=== PATIENT | male | born 1985 | race African-American/Black ===

== ENCOUNTER 2018-09-20 12:58 | Inpatient (IN) | payer OTHER | END 2018-09-24 14:48 | disposition home or self-care (01) | LOC: YASAS 12:58 → Y3N 19:32 ==

== ENCOUNTER 2020-08-05 21:38 | Emergency (ER) | payer OTHER ==
[2020-08-05 21:46] VITALS: BP 136/87; PULSE 63; TEMP 98.9; BMI 25.7
[2020-08-06] MEDS ORDERED: cloNIDine HCL 0.1 MG TABLET PO ONE (00:16)
[2020-08-06] MEDS ORDERED: chlordiazePOXIDE HCL 25 MG CAPSULE PO ONE (02:10)
[2020-08-06] MEDS ORDERED: cloNIDine HCL 0.1 MG TABLET ONE (02:33)
[2020-08-06] MEDS ORDERED: chlordiazePOXIDE HCL 25 MG CAPSULE ONE (02:33)
== END 2020-08-06 06:03 | disposition home or self-care (01) ==
LOC: EDSEX → JER 21:38 → MERGE 21:38 → JER 08-06 06:03
DX: S81.801A Unspecified open wound, right lower leg, initial encounter (principal); F10.230 Alcohol dependence with withdrawal, uncomplicated; F19.10 Other psychoactive substance abuse, uncomplicated
CPT/HCPCS: 99283-25; J0735

== ENCOUNTER 2020-08-06 08:10 | Inpatient (IN) | payer OTHER ==
[2020-08-06 09:05] VITALS: BMI 25.7
[2020-08-06] MEDS ORDERED: MAGNESIUM HYDROX 2400MG/30ML ORAL SUSPENSION 30 ML CUP PO PRN (11:03)
[2020-08-06] MEDS ORDERED: LOPERAMIDE HCL 2 MG CAPSULE PO PRN (11:03)
[2020-08-06] MEDS ORDERED: guaiFENesin 200 MG/10 ML 10 ML UNIT-DOSE CUPS PO PRN (11:03)
[2020-08-06] MEDS ORDERED: ACETAMINOPHEN 325 MG TABLET (FP) PO PRN (11:03)
[2020-08-06] MEDS ORDERED: MAG HYDROX/AL HYDROX/SIMETH 30 ML UNIT-DOSE CUP PO PRN (11:03)
[2020-08-06] MEDS ORDERED: P-EPHED 60MG/TRIPROLIDI 2.5MG TABLET PO PRN (11:03)
[2020-08-06] MEDS ORDERED: IBUPROFEN 400 MG TABLET (FP) PO PRN (11:03)
[2020-08-06] MEDS ORDERED: MAGNESIUM CITRATE 300 ML BOTTLE PO PRN (11:03)
[2020-08-06] MEDS ORDERED: NICOTINE 7 MG/24 HOURS TOPICAL PATCH TD SCH (11:15)
[2020-08-06 13:28] LABS: HEMATOCRIT 25.8 % (35.4-49); HEMOGLOBIN 8.1 GM/dL (11.7-16.9); MCH 21.3 pg (25.7-33.7); MCHC 31.6 g/dl (32.0-35.9); MEAN CELL VOLUME 67.5 fl (80-96); MEAN PLT VOLUME 8.7 fl (7.5-11.1); PLATELET COUNT 128 10^3/uL (134-434); RBC 3.82 M/mm3 (4.00-5.60); RDW 22.8 % (11.9-15.9); WHITE BLOOD COUNT 4.2 K/mm3 (4.0-10.0)
[2020-08-06 13:29] LABS: ALBUMIN 2.7 g/dl (3.4-5.0); CALCIUM 8.2 mg/dL (8.5-10.1)
[2020-08-06 13:30] LABS: BLOOD UREA NITROGEN 14.8 mg/dL (7-18)
[2020-08-06 13:33] LABS: CREATININE 1.1 mg/dL (0.55-1.3)
[2020-08-06 13:34] LABS: BILIRUBIN,TOTAL 0.2 mg/dL (0.2-1); TOT PROT 8.8 g/dl (6.4-8.2)
[2020-08-06] MEDS ORDERED: hydrOXYzine PAMOATE 25 MG CAPSULE (FP) PO SCH (14:00)
[2020-08-06] MEDS: ACETAMINOPHEN 325 MG TABLET (FP) PO PRN (18:48)
[2020-08-06] MEDS: hydrOXYzine PAMOATE 25 MG CAPSULE (FP) PO PRN (20:38)
[2020-08-06] MEDS: MELATONIN 5 MG TABLETS PO SCH (21:28)
[2020-08-06] MEDS: APIXABAN 5 MG TABLET PO SCH (21:28)
[2020-08-06] MEDS: THIAMINE HCL 100 MG TABLET (FP) PO SCH (21:28)
[2020-08-06] MEDS: GABAPENTIN 300 MG CAPSULE PO SCH (21:28)
[2020-08-07] MEDS: ACETAMINOPHEN 325 MG TABLET (FP) PO PRN ×2 (08:30→20:37)
[2020-08-07] MEDS ORDERED: METHADONE HCL 40 MG DISPERSABLE TABLET PO ONE (09:30)
[2020-08-07] MEDS: hydrOXYzine PAMOATE 25 MG CAPSULE (FP) PO PRN ×2 (09:33→21:26)
[2020-08-07] MEDS: BICTEGRAV/EMTRICIT/TENOFOV (BIKTARVY) 50-200-25 MG TABLET PO SCH (09:33)
[2020-08-07] MEDS: GABAPENTIN 300 MG CAPSULE PO SCH ×2 (09:33→21:26)
[2020-08-07] MEDS: PRENATAL VITAMINS W/ FOLIC ACID TABLET (FP) PO SCH ×2 (09:33→09:34)
[2020-08-07] MEDS: NICOTINE 21 MG/24 HOURS TOPICAL PATCH TD SCH (09:34)
[2020-08-07] MEDS: APIXABAN 5 MG TABLET PO SCH ×2 (09:34→21:25)
[2020-08-07] MEDS ORDERED: MASKS NR ONE (11:32)
[2020-08-07] MEDS ORDERED: TUBERCULIN PPD 5 TU/0.1ML VIAL ID ONE (12:02)
[2020-08-07] MEDS ORDERED: PENICILLIN G BENZATHINE 2,400,000 UNIT/4 ML PFS IM ONE (12:15)
[2020-08-07] MEDS: MELATONIN 5 MG TABLETS PO SCH (21:25)
[2020-08-07] MEDS: THIAMINE HCL 100 MG TABLET (FP) PO SCH (21:26)
[2020-08-08] MEDS: METHADONE HCL 40 MG DISPERSABLE TABLET PO SCH (06:49)
[2020-08-08] MEDS: hydrOXYzine PAMOATE 25 MG CAPSULE (FP) PO PRN ×3 (06:50→21:18)
[2020-08-08] MEDS: NICOTINE POLACRILEX 2 MG GUM BUC PRN (06:51)
[2020-08-08] MEDS ORDERED: MASKS NR ONE (06:52)
[2020-08-08] MEDS: ACETAMINOPHEN 325 MG TABLET (FP) PO PRN ×3 (06:56→21:18)
[2020-08-08] MEDS: APIXABAN 5 MG TABLET PO SCH ×2 (10:38→21:18)
[2020-08-08] MEDS: GABAPENTIN 300 MG CAPSULE PO SCH ×2 (10:38→21:18)
[2020-08-08] MEDS: PRENATAL VITAMINS W/ FOLIC ACID TABLET (FP) PO SCH (10:38)
[2020-08-08] MEDS: NICOTINE 21 MG/24 HOURS TOPICAL PATCH TD SCH (10:38)
[2020-08-08] MEDS: BICTEGRAV/EMTRICIT/TENOFOV (BIKTARVY) 50-200-25 MG TABLET PO SCH (10:39)
[2020-08-08] MEDS: THIAMINE HCL 100 MG TABLET (FP) PO SCH (21:18)
[2020-08-08] MEDS: MELATONIN 5 MG TABLETS PO SCH (21:18)
[2020-08-09] MEDS: hydrOXYzine PAMOATE 25 MG CAPSULE (FP) PO PRN (06:23)
[2020-08-09] MEDS: ACETAMINOPHEN 325 MG TABLET (FP) PO PRN ×2 (06:23→16:48)
[2020-08-09] MEDS: NICOTINE POLACRILEX 2 MG GUM BUC PRN (06:26)
[2020-08-09] MEDS: METHADONE HCL 40 MG DISPERSABLE TABLET PO SCH (06:27)
[2020-08-09] MEDS: PRENATAL VITAMINS W/ FOLIC ACID TABLET (FP) PO SCH (10:27)
[2020-08-09] MEDS: FERROUS GLUCONATE 324 MG TAB (FP) PO SCH ×3 (10:27→16:47)
[2020-08-09] MEDS: APIXABAN 5 MG TABLET PO SCH ×2 (10:28→21:31)
[2020-08-09] MEDS: NICOTINE 21 MG/24 HOURS TOPICAL PATCH TD SCH (10:29)
[2020-08-09] MEDS: GABAPENTIN 300 MG CAPSULE PO SCH ×2 (10:29→21:32)
[2020-08-09] MEDS ORDERED: PT OWN MED DRAWER 7, Y5N ONE ×3 (11:52→19:44)
[2020-08-09] MEDS: BICTEGRAV/EMTRICIT/TENOFOV (BIKTARVY) 50-200-25 MG TABLET PO SCH (11:53)
[2020-08-09] MEDS ORDERED: PNEUMOC 13-VAL CONJ-DIP CRM/PF 0.5 ML DISP.SYRIN IM ONE (12:00)
[2020-08-09] MEDS ORDERED: METHOCARBAMOL 500 MG TABLET PO ONE (19:40)
[2020-08-09] MEDS: MELATONIN 5 MG TABLETS PO SCH (21:32)
[2020-08-09] MEDS: THIAMINE HCL 100 MG TABLET (FP) PO SCH (21:32)
[2020-08-10] MEDS: ACETAMINOPHEN 325 MG TABLET (FP) PO PRN ×4 (01:31→22:59)
[2020-08-10] MEDS: METHADONE HCL 40 MG DISPERSABLE TABLET PO SCH (06:16)
[2020-08-10] MEDS: BICTEGRAV/EMTRICIT/TENOFOV (BIKTARVY) 50-200-25 MG TABLET PO SCH (07:35)
[2020-08-10] MEDS: FERROUS GLUCONATE 324 MG TAB (FP) PO SCH ×3 (07:35→17:28)
[2020-08-10] MEDS: APIXABAN 5 MG TABLET PO SCH ×2 (10:12→22:59)
[2020-08-10] MEDS: GABAPENTIN 300 MG CAPSULE PO SCH ×2 (10:12→22:59)
[2020-08-10] MEDS: NICOTINE 21 MG/24 HOURS TOPICAL PATCH TD SCH (10:12)
[2020-08-10] MEDS: PRENATAL VITAMINS W/ FOLIC ACID TABLET (FP) PO SCH (10:13)
[2020-08-10] MEDS: NICOTINE POLACRILEX 2 MG GUM BUC PRN (10:15)
[2020-08-10] MEDS ORDERED: METHOCARBAMOL 500 MG TABLET PO ONE (11:15)
[2020-08-10] MEDS ORDERED: TRIMETHOBENZAMIDE HCL 200MG/2ML INJ IM PRN (22:06)
[2020-08-10] MEDS: METHOCARBAMOL 500 MG TABLET PO PRN (22:59)
[2020-08-10] MEDS: MELATONIN 5 MG TABLETS PO SCH (22:59)
[2020-08-10] MEDS: THIAMINE HCL 100 MG TABLET (FP) PO SCH (22:59)
[2020-08-11] MEDS ORDERED: PT OWN MED DRAWER 7, Y5N ONE ×3 (03:52→12:00)
[2020-08-11] MEDS: METHADONE HCL 40 MG DISPERSABLE TABLET PO SCH (06:30)
[2020-08-11] MEDS: METHOCARBAMOL 500 MG TABLET PO PRN ×2 (06:32→21:36)
[2020-08-11] MEDS: hydrOXYzine PAMOATE 25 MG CAPSULE (FP) PO PRN ×3 (06:33→21:35)
[2020-08-11] MEDS: ACETAMINOPHEN 325 MG TABLET (FP) PO PRN ×3 (06:33→21:34)
[2020-08-11] MEDS: BICTEGRAV/EMTRICIT/TENOFOV (BIKTARVY) 50-200-25 MG TABLET PO SCH (07:08)
[2020-08-11] MEDS: FERROUS GLUCONATE 324 MG TAB (FP) PO SCH ×3 (07:08→17:40)
[2020-08-11] MEDS: NICOTINE 21 MG/24 HOURS TOPICAL PATCH TD SCH (10:16)
[2020-08-11] MEDS: PRENATAL VITAMINS W/ FOLIC ACID TABLET (FP) PO SCH (10:16)
[2020-08-11] MEDS: GABAPENTIN 300 MG CAPSULE PO SCH ×2 (10:17→21:36)
[2020-08-11] MEDS: APIXABAN 5 MG TABLET PO SCH ×2 (10:17→21:36)
[2020-08-11] MEDS: THIAMINE HCL 100 MG TABLET (FP) PO SCH (21:35)
[2020-08-11] MEDS: MELATONIN 5 MG TABLETS PO SCH (21:36)
[2020-08-12] MEDS: METHADONE HCL 40 MG DISPERSABLE TABLET PO SCH (06:19)
[2020-08-12] MEDS: ACETAMINOPHEN 325 MG TABLET (FP) PO PRN (06:19)
[2020-08-12] MEDS: hydrOXYzine PAMOATE 25 MG CAPSULE (FP) PO PRN (06:20)
[2020-08-12 07:17] VITALS: BP 113/75; PULSE 64; TEMP 97.5
[2020-08-12] MEDS: BICTEGRAV/EMTRICIT/TENOFOV (BIKTARVY) 50-200-25 MG TABLET PO SCH (07:37)
[2020-08-12] MEDS: FERROUS GLUCONATE 324 MG TAB (FP) PO SCH (07:37)
[2020-08-12] MEDS: GABAPENTIN 300 MG CAPSULE PO SCH (09:20)
[2020-08-12] MEDS: APIXABAN 5 MG TABLET PO SCH (09:20)
[2020-08-12] MEDS: PRENATAL VITAMINS W/ FOLIC ACID TABLET (FP) PO SCH (09:20)
[2020-08-12] MEDS: NICOTINE 21 MG/24 HOURS TOPICAL PATCH TD SCH (09:20)
== END 2020-08-12 09:35 | disposition home or self-care (01) | DRG 772 ==
LOC: YASAS 08:10 → Y3N 09:59 → Y3W 11:10 → Y5N 13:08
PROVIDERS: ADMIT Allergy & Immunology; ATTEND Allergy & Immunology
PROC: HZ42ZZZ Group Counseling for Substance Abuse Treatment, Cognitive-Behavioral (ICD-10-PCS; principal; 2020-08-06)
DX: F10.20 Alcohol dependence, uncomplicated (principal); F11.20 Opioid dependence, uncomplicated; F14.20 Cocaine dependence, uncomplicated; F17.210 Nicotine dependence, cigarettes, uncomplicated; Z21 Asymptomatic human immunodeficiency virus [HIV] infection status; D50.9 Iron deficiency anemia, unspecified; L97.919 Non-pressure chronic ulcer of unspecified part of right lower leg with unspecified severity; Z87.2 Personal history of diseases of the skin and subcutaneous tissue; Z86.718 Personal history of other venous thrombosis and embolism; Z79.01 Long term (current) use of anticoagulants; Z86.19 Personal history of other infectious and parasitic diseases; Z91.14 Patient's other noncompliance with medication regimen
CPT/HCPCS: 36415; 80053; 85027; 86593; 86780; C9803; U0003; U0005

== ENCOUNTER 2020-10-10 00:44 | Inpatient (IN) | payer OTHER ==
[2020-10-10 01:13] VITALS: BMI 26.2
[2020-10-10] MEDS ORDERED: KETOROLAC TROMETHAMINE 30 MG/1 ML VIAL IVPUSH ONE (03:14)
[2020-10-10] MEDS ORDERED: KETOROLAC TROMETHAMINE 30 MG/1 ML VIAL ONE (04:25)
[2020-10-10 04:46] LABS: BASO % 0.6 % (0-2.0); HEMOGLOBIN 8.3 GM/dL (11.7-16.9); LYMPH % 27.7 % (8-40); MCH 21.2 pg (25.7-33.7); MCHC 31.7 g/dl (32.0-35.9); MEAN CELL VOLUME 66.9 fl (80-96); MEAN PLT VOLUME 8.8 fl (7.5-11.1); MONO % 12.7 % (3.8-10.2); PLATELET COUNT 172 10^3/uL (134-434); RDW 21.8 % (11.9-15.9); WHITE BLOOD COUNT 3.7 K/mm3 (4.0-10.0)
[2020-10-10 04:58] LABS: ALBUMIN 2.8 g/dl (3.4-5.0); CALCIUM 8.4 mg/dL (8.5-10.1)
[2020-10-10 05:02] LABS: CREATININE 1.2 mg/dL (0.55-1.3)
[2020-10-10 05:03] LABS: BILIRUBIN,TOTAL 0.2 mg/dL (0.2-1); TOT PROT 9.5 g/dl (6.4-8.2)
[2020-10-10] MEDS ORDERED: morphine CARPU-JECT 4 MG/1 ML DISP.SYRIN IVPUSH ONE (05:18)
[2020-10-10] MEDS ORDERED: morphine SULFATE 4 MG/ML VIAL ONE (05:22)
[2020-10-10] MEDS ORDERED: VANCOMYCIN 1 GM PREMIX - 1 GM/200 ML BAG IVPB ONE (06:07)
[2020-10-10] MEDS ORDERED: PIPERACILLIN/TAZOB 4.5 GM 4.5 GM in DEXTROSE 5%-WATER 100 ML IVPB ONE (06:07)
[2020-10-10] MEDS ORDERED: PIPERACILLIN/TAZOB 4.5 GM 4.5 GM/100 ML BAG IVPB ONE (06:10)
[2020-10-10] MEDS ORDERED: VANCOMYCIN 1 GRAM (PRE-DOCKED) 1,000 MG/250 ML BAG IVPB ONE (06:10)
[2020-10-10 07:49] LABS: ANISOCYTOSIS 3+; MACROCYTOSIS 0; PLATELET ESTIMATE NORMAL; ROULEAU 2+; TARGET CELLS 1+; TEAR DROP CELLS 1+
[2020-10-10] MEDS ORDERED: methaDONE HCL 40 MG DISPERSABLE TABLET PO ONE (09:14)
[2020-10-10] MEDS ORDERED: SODIUM CHLORIDE 0.9% 500 ML INFUS.BAG IV ONE (09:17)
[2020-10-10] MEDS ORDERED: methaDONE HCL 10 MG TABLET PO ONE (09:20)
[2020-10-10] MEDS ORDERED: methaDONE HCL 10 MG TABLET ONE (09:26)
[2020-10-10] MEDS ORDERED: BENZOIN 118 ML SPRAY.PUMP TP ONE (10:53)
[2020-10-10] MEDS: FERROUS GLUCONATE 324 MG TAB (FP) PO SCH ×2 (14:59→18:08)
[2020-10-10] MEDS: GABAPENTIN 300 MG CAPSULE PO SCH ×2 (14:59→21:54)
[2020-10-10] MEDS ORDERED: MORPHINE SULFATE 2 MG/ML VIAL ONE (16:15)
[2020-10-10] MEDS: MORPHINE SULFATE 2 MG/ML VIAL IVPUSH ONE ×2 (16:22→18:08)
[2020-10-10] MEDS ORDERED: PIPERACILLIN/TAZOBACTAM 3.375 GM VIAL IVPB ONE (17:43)
[2020-10-10] MEDS ORDERED: DEXTROSE 5%-WATER - 50 ML IVPB ONE (17:43)
[2020-10-10] MEDS: PIPERACILLIN/TAZOB 3.375 GM 3.375 GM in DEXTROSE 5%-WATER - 50 ML IVPB SCH ×2 (18:06→18:07)
[2020-10-10] MEDS: VANCOMYCIN 1 GRAM (PRE-DOCKED) 1,000 MG/250 ML BAG IVPB SCH (19:05)
[2020-10-10] MEDS: APIXABAN 5 MG TABLET PO SCH (21:54)
[2020-10-10] MEDS: SPIRONOLACTONE 25 MG TABLET PO SCH (21:57)
[2020-10-10] MEDS: oxyCODONE HCL 5 MG TABLET PO PRN (22:29)
[2020-10-10] MEDS: MELATONIN 5 MG TABLETS PO PRN (23:00)
[2020-10-11] MEDS ORDERED: PIPERACILLIN/TAZOBACTAM 3.375 GM VIAL IVPB ONE ×4 (01:14→17:39)
[2020-10-11] MEDS ORDERED: DEXTROSE 5%-WATER - 50 ML IVPB ONE ×3 (01:14→17:39)
[2020-10-11] MEDS: PIPERACILLIN/TAZOB 3.375 GM 3.375 GM in DEXTROSE 5%-WATER - 50 ML IVPB SCH ×3 (01:59→17:41)
[2020-10-11] MEDS: GABAPENTIN 300 MG CAPSULE PO SCH ×3 (05:37→21:14)
[2020-10-11] MEDS: oxyCODONE HCL 5 MG TABLET PO PRN ×2 (05:37→15:15)
[2020-10-11] MEDS: VANCOMYCIN 1 GRAM (PRE-DOCKED) 1,000 MG/250 ML BAG IVPB SCH ×2 (05:39→17:47)
[2020-10-11 09:30] LABS: BASO % 0.8 % (0-2.0); EOS % 1.8 % (0-4.5); HEMATOCRIT 24.7 % (35.4-49); HEMOGLOBIN 7.8 GM/dL (11.7-16.9); LYMPH % 34.6 % (8-40); MCH 20.9 pg (25.7-33.7); MCHC 31.7 g/dl (32.0-35.9); MEAN CELL VOLUME 66.1 fl (80-96); MEAN PLT VOLUME 8.5 fl (7.5-11.1); MONO % 12.9 % (3.8-10.2); NEUT % 49.9 % (42.8-82.8); PLATELET COUNT 187 10^3/uL (134-434); RBC 3.74 M/mm3 (4.00-5.60); WHITE BLOOD COUNT 3.5 K/mm3 (4.0-10.0)
[2020-10-11] MEDS ORDERED: PT OWN MED DRAWER 7, Y5N ONE (09:38)
[2020-10-11] MEDS: FERROUS GLUCONATE 324 MG TAB (FP) PO SCH ×3 (09:39→17:47)
[2020-10-11] MEDS: SPIRONOLACTONE 25 MG TABLET PO SCH ×2 (09:40→22:28)
[2020-10-11] MEDS: BICTEGRAV/EMTRICIT/TENOFOV (BIKTARVY) 50-200-25 MG TABLET PO SCH (09:40)
[2020-10-11] MEDS: APIXABAN 5 MG TABLET PO SCH ×2 (09:41→21:14)
[2020-10-11] MEDS ORDERED: methaDONE HCL 40 MG DISPERSABLE TABLET ONE (09:54)
[2020-10-11] MEDS ORDERED: methaDONE HCL 10 MG TABLET ONE (09:55)
[2020-10-11] MEDS ORDERED: methaDONE HCL 40 MG DISPERSABLE TABLET PO SCH (10:00)
[2020-10-11] MEDS ORDERED: DIVALPROEX SODIUM 500 MG TABLET E.C. PO SCH (10:00)
[2020-10-11] MEDS ORDERED: methaDONE HCL 10 MG TABLET PO SCH (10:00)
[2020-10-11 10:12] LABS: ALBUMIN 2.4 g/dl (3.4-5.0); BLOOD UREA NITROGEN 8.4 mg/dL (7-18); MAGNESIUM 2.3 mg/dL (1.8-2.4)
[2020-10-11] MEDS: methaDONE 80 MG, methaDONE 10 MG PO SCH (10:14)
[2020-10-11 10:15] LABS: PHOSPHOROUS 3.2 mg/dL (2.5-4.9)
[2020-10-11 10:16] LABS: BILIRUBIN,TOTAL 0.2 mg/dL (0.2-1); TOT PROT 8.1 g/dl (6.4-8.2)
[2020-10-11] MEDS ORDERED: KETOROLAC TROMETHAMINE 15 MG/ML VIAL IVPUSH PRN (10:28)
[2020-10-11] MEDS ORDERED: ACETAMINOPHEN 325 MG TABLET (FP) PO PRN (10:29)
[2020-10-11] MEDS ORDERED: ZINC OXIDE/PETROLATUM,WHITE 1 APPLIC OINT...G. TP PRN (11:26)
[2020-10-11] MEDS ORDERED: CELECOXIB 100 MG CAPSULE PO SCH (11:30)
[2020-10-11] MEDS ORDERED: methaDONE HCL 10 MG TABLET (FOR DETOX USE ONLY) PO SCH (11:30)
[2020-10-11] MEDS: ACETAMINOPHEN 325 MG TABLET (FP) PO PRN (12:14)
[2020-10-11] MEDS: traMADol HCL 50 MG TABLET PO PRN ×2 (12:14→19:52)
[2020-10-11] MEDS ORDERED: diphenhydrAMINE HCL 25 MG CAPSULE (FP) PO PRN (18:17)
[2020-10-11] MEDS: LIDOCAINE 5% TOPICAL PATCH TP SCH (20:35)
[2020-10-11] MEDS: MELATONIN 5 MG TABLETS PO PRN (21:15)
[2020-10-11] MEDS ORDERED: ACETAMINOPHEN 1000 MG/100 ML VIAL (NON FORMULARY) IVPB ONE (23:07)
[2020-10-12] MEDS ORDERED: morphine SULFATE 4 MG/ML VIAL IVPUSH PRN (01:03)
[2020-10-12] MEDS ORDERED: PIPERACILLIN/TAZOBACTAM 3.375 GM VIAL IVPB ONE ×3 (01:15→17:03)
[2020-10-12] MEDS ORDERED: DEXTROSE 5%-WATER - 50 ML IVPB ONE ×3 (01:15→17:03)
[2020-10-12] MEDS: PIPERACILLIN/TAZOB 3.375 GM 3.375 GM in DEXTROSE 5%-WATER - 50 ML IVPB SCH ×3 (02:10→18:04)
[2020-10-12] MEDS: VANCOMYCIN 1 GRAM (PRE-DOCKED) 1,000 MG/250 ML BAG IVPB SCH ×2 (05:44→18:04)
[2020-10-12] MEDS: GABAPENTIN 300 MG CAPSULE PO SCH ×3 (05:47→21:05)
[2020-10-12] MEDS ORDERED: methaDONE HCL 10 MG TABLET ONE ×2 (05:48→09:11)
[2020-10-12] MEDS ORDERED: methaDONE HCL 40 MG DISPERSABLE TABLET ONE ×2 (05:48→09:11)
[2020-10-12] MEDS: traMADol HCL 50 MG TABLET PO PRN ×3 (07:58→20:33)
[2020-10-12] MEDS ORDERED: PT OWN MED DRAWER 7, Y5N ONE (09:12)
[2020-10-12] MEDS: LIDOCAINE PATCH REMOVAL MC SCH ×2 (09:25→21:06)
[2020-10-12] MEDS: methaDONE 80 MG, methaDONE 10 MG PO SCH (09:26)
[2020-10-12] MEDS: SPIRONOLACTONE 25 MG TABLET PO SCH ×2 (09:27→21:06)
[2020-10-12 10:38] LABS: BASO % 0.8 % (0-2.0); HEMOGLOBIN 8.1 GM/dL (11.7-16.9); LYMPH % 39.2 % (8-40); MCH 20.8 pg (25.7-33.7); MCHC 31.3 g/dl (32.0-35.9); MEAN CELL VOLUME 66.4 fl (80-96); MEAN PLT VOLUME 9.1 fl (7.5-11.1); MONO % 14.5 % (3.8-10.2); NEUT % 42.5 % (42.8-82.8); PLATELET COUNT 209 10^3/uL (134-434); RBC 3.91 M/mm3 (4.00-5.60); RDW 20.8 % (11.9-15.9); WHITE BLOOD COUNT 3.7 K/mm3 (4.0-10.0)
[2020-10-12] MEDS: LIDOCAINE 5% TOPICAL PATCH TP SCH (10:56)
[2020-10-12] MEDS: BICTEGRAV/EMTRICIT/TENOFOV (BIKTARVY) 50-200-25 MG TABLET PO SCH (10:59)
[2020-10-12] MEDS: APIXABAN 5 MG TABLET PO SCH ×2 (10:59→21:05)
[2020-10-12] MEDS: FERROUS GLUCONATE 324 MG TAB (FP) PO SCH ×3 (10:59→18:04)
[2020-10-12 11:03] LABS: CALCIUM 8.4 mg/dL (8.5-10.1)
[2020-10-12 11:04] LABS: ALBUMIN 2.5 g/dl (3.4-5.0); BLOOD UREA NITROGEN 13.7 mg/dL (7-18)
[2020-10-12 11:06] LABS: CREATININE 1.1 mg/dL (0.55-1.3)
[2020-10-12 11:08] LABS: BILIRUBIN,TOTAL 0.2 mg/dL (0.2-1); TOT PROT 8.7 g/dl (6.4-8.2)
[2020-10-12] MEDS: ACETAMINOPHEN 325 MG TABLET (FP) PO PRN (15:23)
[2020-10-12] MEDS: MELATONIN 5 MG TABLETS PO PRN (21:05)
[2020-10-13] MEDS: oxyCODONE HCL 5 MG TABLET PO PRN ×2 (00:20→11:52)
[2020-10-13] MEDS: ACETAMINOPHEN 325 MG TABLET (FP) PO PRN ×2 (00:20→11:53)
[2020-10-13] MEDS ORDERED: PIPERACILLIN/TAZOBACTAM 3.375 GM VIAL IVPB ONE ×2 (01:44→07:24)
[2020-10-13] MEDS ORDERED: DEXTROSE 5%-WATER - 50 ML IVPB ONE ×2 (01:44→07:24)
[2020-10-13] MEDS: PIPERACILLIN/TAZOB 3.375 GM 3.375 GM in DEXTROSE 5%-WATER - 50 ML IVPB SCH ×2 (01:46→10:07)
[2020-10-13] MEDS: traMADol HCL 50 MG TABLET PO PRN ×3 (02:24→14:15)
[2020-10-13] MEDS ORDERED: methaDONE HCL 40 MG DISPERSABLE TABLET ONE ×2 (05:45→09:58)
[2020-10-13] MEDS ORDERED: methaDONE HCL 10 MG TABLET ONE ×2 (05:45→09:59)
[2020-10-13] MEDS: GABAPENTIN 300 MG CAPSULE PO SCH ×2 (05:53→14:15)
[2020-10-13] MEDS: VANCOMYCIN 1 GRAM (PRE-DOCKED) 1,000 MG/250 ML BAG IVPB SCH (05:54)
[2020-10-13] MEDS: FERROUS GLUCONATE 324 MG TAB (FP) PO SCH ×2 (08:33→11:54)
[2020-10-13 09:28] VITALS: BP 128/82; PULSE 69; TEMP 98.3
[2020-10-13] MEDS: SPIRONOLACTONE 25 MG TABLET PO SCH (09:57)
[2020-10-13] MEDS: APIXABAN 5 MG TABLET PO SCH (10:04)
[2020-10-13] MEDS: methaDONE 80 MG, methaDONE 10 MG PO SCH (10:04)
[2020-10-13] MEDS: LIDOCAINE 5% TOPICAL PATCH TP SCH (10:05)
[2020-10-13] MEDS: BICTEGRAV/EMTRICIT/TENOFOV (BIKTARVY) 50-200-25 MG TABLET PO SCH (11:54)
[2020-10-13] MEDS ORDERED: METOCLOPRAMIDE HCL 10 MG TABLET (FP) PO ONE (14:30)
== END 2020-10-13 15:14 | disposition home or self-care (01) | DRG 380 ==
LOC: JER 00:44 → JERBED 08:30 → J5S 16:55
PROVIDERS: ADMIT Internal Medicine; ATTEND Internal Medicine
PROC: HZ91ZZZ Pharmacotherapy for Substance Abuse Treatment, Methadone Maintenance (ICD-10-PCS; principal; 2020-10-10)
DX: L97.418 Non-pressure chronic ulcer of right heel and midfoot with other specified severity (principal); Z21 Asymptomatic human immunodeficiency virus [HIV] infection status; R97.20 Elevated prostate specific antigen [PSA]; I10 Essential (primary) hypertension; D64.9 Anemia, unspecified; B02.29 Other postherpetic nervous system involvement; S91.301A Unspecified open wound, right foot, initial encounter; M79.2 Neuralgia and neuritis, unspecified; L08.9 Local infection of the skin and subcutaneous tissue, unspecified; Z86.718 Personal history of other venous thrombosis and embolism; F17.210 Nicotine dependence, cigarettes, uncomplicated; Z78.9 Other specified health status; F11.20 Opioid dependence, uncomplicated; F14.10 Cocaine abuse, uncomplicated
CPT/HCPCS: 36415; 73630-TC-RT-FY; 80053; 83735; 84100; 85025; 87040; 93005; 93010; 97116-GP; 97162-GP; 99285-25; C9803; U0003; U0005

== ENCOUNTER 2020-10-22 20:32 | Emergency (ER) | payer OTHER ==
[2020-10-22 20:57] VITALS: BMI 29.0
[2020-10-22] MEDS ORDERED: NALOXONE HCL 0.4 MG/ML VIAL IVPUSH ONE (21:17)
[2020-10-22] MEDS ORDERED: NALOXONE HCL 0.4 MG/ML VIAL ONE (21:47)
[2020-10-23 06:43] VITALS: BP 109/60; PULSE 59; TEMP 98.7
== END 2020-10-23 07:19 | disposition home or self-care (01) ==
LOC: JER 20:32
PROC: 3E033NZ Introduction of Analgesics, Hypnotics, Sedatives into Peripheral Vein, Percutaneous Approach (ICD-10-PCS; principal; 2020-10-22)
DX: F19.10 Other psychoactive substance abuse, uncomplicated (principal); Z87.2 Personal history of diseases of the skin and subcutaneous tissue
CPT/HCPCS: 82962; 99284-25

== ENCOUNTER 2020-10-23 08:36 | Inpatient (IN) | payer OTHER ==
[2020-10-23 08:41] VITALS: BMI 25.7
[2020-10-23] MEDS ORDERED: ONDANSETRON *ODT* 4 MG TABLET SL PRN (10:30)
[2020-10-23] MEDS ORDERED: IBUPROFEN 400 MG TABLET (FP) PO PRN (10:30)
[2020-10-23] MEDS ORDERED: MAGNESIUM CITRATE 300 ML BOTTLE PO PRN (10:30)
[2020-10-23] MEDS ORDERED: MAGNESIUM HYDROX 2400MG/30ML ORAL SUSPENSION 30 ML CUP PO PRN (10:30)
[2020-10-23] MEDS ORDERED: MAG HYDROX/AL HYDROX/SIMETH 30 ML UNIT-DOSE CUP PO PRN (10:30)
[2020-10-23] MEDS ORDERED: ACETAMINOPHEN 325 MG TABLET (FP) PO PRN ×2 (10:30)
[2020-10-23] MEDS ORDERED: BISMUTH SUBSALICYLATE 524 MG/30 ML PO PRN (10:30)
[2020-10-23] MEDS ORDERED: MENTHOL/PHENOL 1 EACH UD MM PRN (10:30)
[2020-10-23] MEDS ORDERED: diazePAM 5 MG TABLET PO PRN (10:30)
[2020-10-23] MEDS ORDERED: ALBUTEROL SO4 HFA INHALER IH PRN (10:33)
[2020-10-23] MEDS: diazePAM 5 MG TABLET PO SCH ×3 (11:56→23:04)
[2020-10-23] MEDS: FERROUS GLUCONATE 324 MG TAB (FP) PO SCH ×2 (11:56→17:44)
[2020-10-23] MEDS: ACETAMINOPHEN 500 MG TABLET (FP) PO SCH ×4 (11:56→23:03)
[2020-10-23] MEDS: methaDONE HCL 40 MG DISPERSABLE TABLET PO SCH (11:56)
[2020-10-23] MEDS: PRENATAL VITAMINS W/ FOLIC ACID TABLET (FP) PO SCH (11:57)
[2020-10-23] MEDS: hydrOXYzine PAMOATE 25 MG CAPSULE (FP) PO SCH ×3 (14:41→23:04)
[2020-10-23] MEDS: APIXABAN 5 MG TABLET PO SCH (23:01)
[2020-10-23] MEDS: MELATONIN 5 MG TABLETS PO SCH (23:02)
[2020-10-23] MEDS: THIAMINE HCL 100 MG TABLET (FP) PO SCH (23:04)
[2020-10-24] MEDS: methaDONE HCL 40 MG DISPERSABLE TABLET PO SCH (06:20)
[2020-10-24] MEDS: hydrOXYzine PAMOATE 25 MG CAPSULE (FP) PO SCH (06:21)
[2020-10-24] MEDS: diazePAM 5 MG TABLET PO SCH ×4 (06:21→22:51)
[2020-10-24] MEDS: ACETAMINOPHEN 500 MG TABLET (FP) PO SCH ×2 (07:16→07:17)
[2020-10-24] MEDS: FERROUS GLUCONATE 324 MG TAB (FP) PO SCH ×3 (07:17→17:25)
[2020-10-24] MEDS: DIVALPROEX SODIUM 500 MG TABLET E.C. PO SCH ×2 (10:11→10:16)
[2020-10-24] MEDS: BICTEGRAV/EMTRICIT/TENOFOV (BIKTARVY) 50-200-25 MG TABLET PO SCH (10:12)
[2020-10-24] MEDS: APIXABAN 5 MG TABLET PO SCH ×2 (10:12→22:51)
[2020-10-24] MEDS: PRENATAL VITAMINS W/ FOLIC ACID TABLET (FP) PO SCH (10:13)
[2020-10-24] MEDS: ACETAMINOPHEN 325 MG TABLET (FP) PO PRN ×2 (10:14→16:12)
[2020-10-24 12:17] LABS: HEMATOCRIT 26.3 % (35.4-49); HEMOGLOBIN 8.3 GM/dL (11.7-16.9); MCH 21.5 pg (25.7-33.7); MCHC 31.4 g/dl (32.0-35.9); MEAN CELL VOLUME 68.6 fl (80-96); MEAN PLT VOLUME 9.1 fl (7.5-11.1); PLATELET COUNT 143 10^3/uL (134-434); RBC 3.84 M/mm3 (4.00-5.60); WHITE BLOOD COUNT 4.4 K/mm3 (4.0-10.0)
[2020-10-24 12:22] LABS: ALBUMIN 2.8 g/dl (3.4-5.0); BLOOD UREA NITROGEN 13.4 mg/dL (7-18); CALCIUM 8.2 mg/dL (8.5-10.1)
[2020-10-24 12:24] LABS: CREATININE 1.1 mg/dL (0.55-1.3)
[2020-10-24 12:25] LABS: BILIRUBIN,TOTAL 0.2 mg/dL (0.2-1)
[2020-10-24 12:26] LABS: TOT PROT 9.2 g/dl (6.4-8.2)
[2020-10-24] MEDS ORDERED: MASKS NR ONE (17:28)
[2020-10-24] MEDS: NICOTINE 10 MG CARTRIDGE (INHALER) IH PRN (17:59)
[2020-10-24] MEDS: THIAMINE HCL 100 MG TABLET (FP) PO SCH (22:51)
[2020-10-24] MEDS: MELATONIN 5 MG TABLETS PO SCH (22:51)
[2020-10-25] MEDS: ACETAMINOPHEN 325 MG TABLET (FP) PO PRN ×3 (03:25→21:12)
[2020-10-25] MEDS: diazePAM 5 MG TABLET PO SCH ×3 (06:07→21:14)
[2020-10-25] MEDS: methaDONE HCL 40 MG DISPERSABLE TABLET PO SCH (06:07)
[2020-10-25] MEDS: FERROUS GLUCONATE 324 MG TAB (FP) PO SCH ×3 (07:57→17:02)
[2020-10-25] MEDS: PRENATAL VITAMINS W/ FOLIC ACID TABLET (FP) PO SCH (10:26)
[2020-10-25] MEDS: APIXABAN 5 MG TABLET PO SCH ×2 (10:27→21:13)
[2020-10-25] MEDS: BICTEGRAV/EMTRICIT/TENOFOV (BIKTARVY) 50-200-25 MG TABLET PO SCH (10:27)
[2020-10-25] MEDS: DIVALPROEX SODIUM 500 MG TABLET E.C. PO SCH (10:28)
[2020-10-25] MEDS: NICOTINE 10 MG CARTRIDGE (INHALER) IH PRN (13:40)
[2020-10-25] MEDS: MELATONIN 5 MG TABLETS PO SCH (21:13)
[2020-10-25] MEDS: THIAMINE HCL 100 MG TABLET (FP) PO SCH (21:13)
[2020-10-26] MEDS: methaDONE HCL 40 MG DISPERSABLE TABLET PO SCH (06:19)
[2020-10-26] MEDS: diazePAM 5 MG TABLET PO SCH ×2 (06:19→17:32)
[2020-10-26] MEDS: ACETAMINOPHEN 325 MG TABLET (FP) PO PRN ×2 (06:22→17:30)
[2020-10-26] MEDS: BICTEGRAV/EMTRICIT/TENOFOV (BIKTARVY) 50-200-25 MG TABLET PO SCH (07:27)
[2020-10-26] MEDS: FERROUS GLUCONATE 324 MG TAB (FP) PO SCH ×3 (07:28→17:30)
[2020-10-26] MEDS: DIVALPROEX SODIUM 500 MG TABLET E.C. PO SCH (10:22)
[2020-10-26] MEDS: APIXABAN 5 MG TABLET PO SCH ×2 (10:22→22:50)
[2020-10-26] MEDS: PRENATAL VITAMINS W/ FOLIC ACID TABLET (FP) PO SCH (10:22)
[2020-10-26] MEDS: NICOTINE 10 MG CARTRIDGE (INHALER) IH PRN (14:19)
[2020-10-26] MEDS: THIAMINE HCL 100 MG TABLET (FP) PO SCH (22:50)
[2020-10-26] MEDS: METHOCARBAMOL 500 MG TABLET PO PRN (22:50)
[2020-10-26] MEDS: MELATONIN 5 MG TABLETS PO SCH (22:51)
[2020-10-26] MEDS: hydrOXYzine PAMOATE 25 MG CAPSULE (FP) PO PRN (22:51)
[2020-10-27] MEDS: ACETAMINOPHEN 325 MG TABLET (FP) PO PRN ×2 (01:43→10:23)
[2020-10-27] MEDS ORDERED: diazePAM 5 MG TABLET PO ONE (06:00)
[2020-10-27] MEDS: methaDONE HCL 40 MG DISPERSABLE TABLET PO SCH (06:04)
[2020-10-27] MEDS: METHOCARBAMOL 500 MG TABLET PO PRN (06:09)
[2020-10-27] MEDS: hydrOXYzine PAMOATE 25 MG CAPSULE (FP) PO PRN ×2 (06:10→10:21)
[2020-10-27] MEDS: FERROUS GLUCONATE 324 MG TAB (FP) PO SCH ×2 (08:25→13:09)
[2020-10-27] MEDS: PRENATAL VITAMINS W/ FOLIC ACID TABLET (FP) PO SCH (10:20)
[2020-10-27] MEDS: BICTEGRAV/EMTRICIT/TENOFOV (BIKTARVY) 50-200-25 MG TABLET PO SCH (10:20)
[2020-10-27] MEDS: APIXABAN 5 MG TABLET PO SCH (10:20)
[2020-10-27] MEDS: DIVALPROEX SODIUM 500 MG TABLET E.C. PO SCH (10:20)
[2020-10-27 12:59] VITALS: BP 115/59; PULSE 70; TEMP 98.2
== END 2020-10-27 14:00 | disposition home or self-care (01) | DRG 773 ==
LOC: YASAS 08:36 → Y6N 10:16 → Y3N 17:54 → Y6N 10-26 12:11
PROVIDERS: ADMIT Allergy & Immunology; ATTEND Allergy & Immunology
PROC: HZ2ZZZZ Detoxification Services for Substance Abuse Treatment (ICD-10-PCS; principal; 2020-10-23)
DX: F10.230 Alcohol dependence with withdrawal, uncomplicated (principal); F11.20 Opioid dependence, uncomplicated; F14.20 Cocaine dependence, uncomplicated; F17.210 Nicotine dependence, cigarettes, uncomplicated; F64.0 Transsexualism; Z21 Asymptomatic human immunodeficiency virus [HIV] infection status; D50.9 Iron deficiency anemia, unspecified; L97.319 Non-pressure chronic ulcer of right ankle with unspecified severity; Z86.718 Personal history of other venous thrombosis and embolism; Z79.01 Long term (current) use of anticoagulants; Z86.19 Personal history of other infectious and parasitic diseases
CPT/HCPCS: 36415; 80053; 85027; 86593; 86780; C9803; Q0162; U0003; U0005

== ENCOUNTER 2020-11-12 01:54 | Inpatient (IN) | payer OTHER ==
[2020-11-12] MEDS ORDERED: KETOROLAC TROMETHAMINE 30 MG/1 ML VIAL IVPUSH ONE (03:23)
[2020-11-12] MEDS ORDERED: KETOROLAC TROMETHAMINE 15 MG/ML VIAL ONE (03:39)
[2020-11-12 05:41] LABS: BASO % 1.5 % (0-2.0); EOS % 2.2 % (0-4.5); HEMATOCRIT 24.9 % (35.4-49); HEMOGLOBIN 7.8 GM/dL (11.7-16.9); LYMPH % 15.7 % (8-40); MCH 21.4 pg (25.7-33.7); MCHC 31.3 g/dl (32.0-35.9); MEAN CELL VOLUME 68.3 fl (80-96); MONO % 8.6 % (3.8-10.2); PLATELET COUNT 197 10^3/uL (134-434); RBC 3.65 M/mm3 (4.00-5.60); RDW 19.7 % (11.9-15.9); WHITE BLOOD COUNT 5.9 K/mm3 (4.0-10.0)
[2020-11-12] MEDS ORDERED: PIPERACILLIN/TAZOB 4.5 GM 4.5 GM in DEXTROSE 5%-WATER 100 ML IVPB ONE (05:42)
[2020-11-12] MEDS ORDERED: PIPERACILLIN/TAZOB 4.5 GM 4.5 GM/100 ML BAG IVPB ONE (05:51)
[2020-11-12 06:02] LABS: CALCIUM 8.4 mg/dL (8.5-10.1)
[2020-11-12 06:03] LABS: ALBUMIN 2.8 g/dl (3.4-5.0); BLOOD UREA NITROGEN 14.7 mg/dL (7-18)
[2020-11-12 06:06] LABS: CREATININE 1.2 mg/dL (0.55-1.3)
[2020-11-12 06:07] LABS: BILIRUBIN,TOTAL 0.2 mg/dL (0.2-1); TOT PROT 9.2 g/dl (6.4-8.2)
[2020-11-12] MEDS ORDERED: ACETAMINOPHEN 1000 MG/100 ML VIAL IVPB PRN (07:38)
[2020-11-12] MEDS ORDERED: PIPERACILLIN/TAZOB 3.375 GM 3.375 GM in DEXTROSE 5%-WATER - 50 ML IVPB SCH (07:45)
[2020-11-12] MEDS ORDERED: LORazepam 1 MG TABLET PO PRN (08:19)
[2020-11-12] MEDS ORDERED: VANCOMYCIN/WATER 1,250 MG/250 ML BAG IVPB ONE (08:25)
[2020-11-12] MEDS ORDERED: VANCOMYCIN 1 GRAM (PRE-DOCKED) 1,000 MG/250 ML BAG IVPB ONE (08:28)
[2020-11-12] MEDS ORDERED: ACETAMINOPHEN INJECTION 100 ML IVPB ONE (08:49)
[2020-11-12] MEDS ORDERED: VANCOMYCIN/WATER BAGS 1,250 MG/250 ML BAG IVPB ONE (09:15)
[2020-11-12 09:20] LABS: ANISOCYTOSIS 2+; MACROCYTOSIS 1+; PLATELET ESTIMATE NORMAL
[2020-11-12] MEDS ORDERED: ALBUTEROL SO4 HFA INHALER IH PRN (10:17)
[2020-11-12 11:24] LABS: RETICULOCYTES 0.69 % (0.5-1.5)
[2020-11-12] MEDS ORDERED: APIXABAN 5 MG TABLET ONE ×2 (12:24→22:36)
[2020-11-12] MEDS ORDERED: LORazepam 1 MG TABLET ONE ×3 (12:25→22:36)
[2020-11-12] MEDS ORDERED: FERROUS SO4 325 MG TABLET (FP) ONE (12:25)
[2020-11-12] MEDS ORDERED: DIVALPROEX SODIUM 500 MG TABLET E.C. ONE (12:25)
[2020-11-12] MEDS ORDERED: GABAPENTIN 300 MG CAPSULE PO SCH (14:00)
[2020-11-12] MEDS: LORazepam 1 MG TABLET PO SCH ×3 (14:45→23:19)
[2020-11-12] MEDS: DIVALPROEX SODIUM 500 MG TABLET E.C. PO SCH (14:45)
[2020-11-12] MEDS: FERROUS SO4 325 MG TABLET (FP) PO SCH (14:45)
[2020-11-12] MEDS: APIXABAN 5 MG TABLET PO SCH ×2 (14:45→22:42)
[2020-11-12] MEDS ORDERED: PT OWN MED DRAWER 7, Y5N ONE (14:54)
[2020-11-12] MEDS ORDERED: methaDONE HCL 40 MG DISPERSABLE TABLET PO SCH (15:15)
[2020-11-12] MEDS: SODIUM CHLORIDE 1,000 ML IV SCH (15:36)
[2020-11-12] MEDS ORDERED: methaDONE HCL 40 MG DISPERSABLE TABLET ONE (16:46)
[2020-11-12] MEDS ORDERED: PIPERACILLIN/TAZOB 3.375 GM 3.375 GM/50 ML BAG IVPB ONE ×2 (16:46→20:11)
[2020-11-12] MEDS: PIPERACILLIN/TAZOB 3.375 GM 3.375 GM in DEXTROSE 5%-WATER - 50 ML IVPB SCH ×3 (16:54→20:31)
[2020-11-13] MEDS ORDERED: NALOXONE HCL 0.4 MG/ML VIAL IVPUSH ONE (00:19)
[2020-11-13 02:33] VITALS: BMI 22.8
[2020-11-13] MEDS: PIPERACILLIN/TAZOB 3.375 GM 3.375 GM in DEXTROSE 5%-WATER - 50 ML IVPB SCH ×5 (03:24→21:37)
[2020-11-13] MEDS ORDERED: PIPERACILLIN/TAZOBACTAM 3.375 GM VIAL IVPB ONE ×2 (06:18→12:02)
[2020-11-13] MEDS ORDERED: DEXTROSE 5%-WATER - 50 ML IVPB ONE ×2 (06:18→12:02)
[2020-11-13] MEDS: LORazepam 1 MG TABLET PO SCH ×7 (06:25→23:08)
[2020-11-13 06:55] LABS: BASO % 0.3 % (0-2.0); EOS % 1.5 % (0-4.5); HEMATOCRIT 27.7 % (35.4-49); HEMOGLOBIN 8.6 GM/dL (11.7-16.9); LYMPH % 15.7 % (8-40); MCH 20.8 pg (25.7-33.7); MONO % 7.3 % (3.8-10.2); NEUT % 75.2 % (42.8-82.8); PLATELET COUNT 168 10^3/uL (134-434); RBC 4.14 M/mm3 (4.00-5.60); RDW 19.5 % (11.9-15.9); WHITE BLOOD COUNT 5.2 K/mm3 (4.0-10.0)
[2020-11-13 07:11] LABS: ALBUMIN 2.5 g/dl (3.4-5.0); BLOOD UREA NITROGEN 9.5 mg/dL (7-18); CALCIUM 8.4 mg/dL (8.5-10.1); MAGNESIUM 2.4 mg/dL (1.8-2.4)
[2020-11-13 07:14] LABS: CREATININE 0.8 mg/dL (0.55-1.3)
[2020-11-13 07:15] LABS: PHOSPHOROUS 3.4 mg/dL (2.5-4.9)
[2020-11-13 07:16] LABS: BILIRUBIN,TOTAL 0.4 mg/dL (0.2-1); TOT PROT 8.9 g/dl (6.4-8.2)
[2020-11-13] MEDS: SODIUM CHLORIDE 1,000 ML IV SCH (07:38)
[2020-11-13] MEDS ORDERED: PT OWN MED DRAWER 7, Y5N ONE ×3 (08:45→10:23)
[2020-11-13] MEDS ORDERED: methaDONE HCL 10 MG TABLET PO ONE (09:34)
[2020-11-13] MEDS: FERROUS SO4 325 MG TABLET (FP) PO SCH (10:13)
[2020-11-13] MEDS: APIXABAN 5 MG TABLET PO SCH ×3 (10:13→22:34)
[2020-11-13] MEDS: DIVALPROEX SODIUM 500 MG TABLET E.C. PO SCH (10:24)
[2020-11-13] MEDS ORDERED: methaDONE HCL 10 MG TABLET ONE (12:01)
[2020-11-13] MEDS ORDERED: methaDONE HCL 40 MG DISPERSABLE TABLET ONE (12:01)
[2020-11-13] MEDS: methaDONE 80 MG, methaDONE 10 MG PO SCH (12:30)
[2020-11-13] MEDS ORDERED: ALBUTEROL SO4 HFA INHALER IH PRN (17:00)
[2020-11-13] MEDS ORDERED: ACETAMINOPHEN 1000 MG/100 ML VIAL IVPB PRN (17:00)
[2020-11-13] MEDS ORDERED: ACETAMINOPHEN 650 MG/20.3 ML ORAL SOLUTION (CUPS) PO PRN (17:06)
[2020-11-13] MEDS: BICTEGRAV/EMTRICIT/TENOFOV (BIKTARVY) 50-200-25 MG TABLET PO SCH (17:52)
[2020-11-14] MEDS ORDERED: LORazepam 1 MG TABLET PO ONE (03:30)
[2020-11-14] MEDS: ACETAMINOPHEN 650 MG/20.3 ML ORAL SOLUTION (CUPS) PO PRN (03:53)
[2020-11-14] MEDS ORDERED: LORazepam 1 MG TABLET PO SCH (05:00)
[2020-11-14] MEDS: LORazepam 1 MG TABLET PO SCH ×4 (05:15→22:02)
[2020-11-14] MEDS ORDERED: methaDONE HCL 10 MG TABLET PO SCH (06:00)
[2020-11-14] MEDS: methaDONE 80 MG, methaDONE 10 MG PO SCH (06:16)
[2020-11-14] MEDS ORDERED: methaDONE HCL 40 MG DISPERSABLE TABLET PO SCH (08:16)
[2020-11-14] MEDS ORDERED: AMMONIUM LACTATE 12% LOTION 225 GM BOTTLE TP PRN (09:15)
[2020-11-14] MEDS ORDERED: PT OWN MED DRAWER 7, Y5N ONE ×2 (09:40→11:43)
[2020-11-14] MEDS: FERROUS SO4 325 MG TABLET (FP) PO SCH (09:42)
[2020-11-14] MEDS: APIXABAN 5 MG TABLET PO SCH ×2 (09:42→22:02)
[2020-11-14] MEDS: COLLAGENASE CLOSTRIDIUM HIST. 30 GRAMS TUBE TP SCH ×2 (09:42→12:46)
[2020-11-14] MEDS: BICTEGRAV/EMTRICIT/TENOFOV (BIKTARVY) 50-200-25 MG TABLET PO SCH (09:42)
[2020-11-14] MEDS: DIVALPROEX SODIUM 500 MG TABLET E.C. PO SCH (09:42)
[2020-11-14] MEDS ORDERED: methaDONE HCL 40 MG DISPERSABLE TABLET PO ONE (11:45)
[2020-11-14 17:08] LABS: FREE KAPPA,SERUM 216.3 mg/L (3.3-19.4)
[2020-11-15] MEDS ORDERED: LORazepam 0.5 MG TABLET PO PRN ×2
[2020-11-15] MEDS ORDERED: LORazepam 0.5 MG TABLET PO SCH (05:00)
[2020-11-15] MEDS: LORazepam 0.5 MG TABLET PO SCH ×4 (05:10→22:02)
[2020-11-15] MEDS: ACETAMINOPHEN 650 MG/20.3 ML ORAL SOLUTION (CUPS) PO PRN (05:10)
[2020-11-15] MEDS: LORazepam 1 MG TABLET PO SCH (05:10)
[2020-11-15] MEDS: methaDONE HCL 40 MG DISPERSABLE TABLET PO SCH ×2 (05:26→14:59)
[2020-11-15 09:28] LABS: BASO % 0.8 % (0-2.0); EOS % 4.3 % (0-4.5); HEMATOCRIT 28.7 % (35.4-49); HEMOGLOBIN 8.9 GM/dL (11.7-16.9); LYMPH % 36.5 % (8-40); MCHC 31.1 g/dl (32.0-35.9); MEAN CELL VOLUME 67.6 fl (80-96); MEAN PLT VOLUME 9.4 fl (7.5-11.1); MONO % 7.8 % (3.8-10.2); NEUT % 50.6 % (42.8-82.8); PLATELET COUNT 180 10^3/uL (134-434); RBC 4.25 M/mm3 (4.00-5.60); RDW 19.6 % (11.9-15.9); WHITE BLOOD COUNT 3.4 K/mm3 (4.0-10.0)
[2020-11-15 09:57] LABS: CALCIUM 8.8 mg/dL (8.5-10.1)
[2020-11-15 09:58] LABS: ALBUMIN 2.7 g/dl (3.4-5.0); BLOOD UREA NITROGEN 13.3 mg/dL (7-18); MAGNESIUM 2.3 mg/dL (1.8-2.4)
[2020-11-15 10:02] LABS: BILIRUBIN,TOTAL 0.1 mg/dL (0.2-1)
[2020-11-15 10:04] LABS: TOT PROT 9.2 g/dl (6.4-8.2)
[2020-11-15] MEDS ORDERED: PT OWN MED DRAWER 7, Y5N ONE ×2 (10:22→10:29)
[2020-11-15] MEDS: BICTEGRAV/EMTRICIT/TENOFOV (BIKTARVY) 50-200-25 MG TABLET PO SCH (10:23)
[2020-11-15] MEDS: APIXABAN 5 MG TABLET PO SCH ×2 (10:24→22:03)
[2020-11-15] MEDS: DIVALPROEX SODIUM 500 MG TABLET E.C. PO SCH (10:24)
[2020-11-15] MEDS: FERROUS SO4 325 MG TABLET (FP) PO SCH (10:24)
[2020-11-15] MEDS: COLLAGENASE CLOSTRIDIUM HIST. 30 GRAMS TUBE TP SCH (12:59)
[2020-11-15 13:17] LABS: ANISOCYTOSIS 3+; MACROCYTOSIS 0; PLATELET ESTIMATE NORMAL
[2020-11-15] MEDS: MELATONIN 5 MG TABLETS PO PRN (23:19)
[2020-11-16] MEDS: ACETAMINOPHEN 650 MG/20.3 ML ORAL SOLUTION (CUPS) PO PRN ×2 (03:43→17:46)
[2020-11-16] MEDS ORDERED: LORazepam 0.5 MG TABLET PO ONE (05:00)
[2020-11-16] MEDS: LORazepam 0.5 MG TABLET PO ONE ×2 (05:20→05:25)
[2020-11-16] MEDS: methaDONE HCL 40 MG DISPERSABLE TABLET PO SCH (06:54)
[2020-11-16] MEDS ORDERED: PT OWN MED DRAWER 7, Y5N ONE (09:34)
[2020-11-16] MEDS: BICTEGRAV/EMTRICIT/TENOFOV (BIKTARVY) 50-200-25 MG TABLET PO SCH (09:44)
[2020-11-16] MEDS: DIVALPROEX SODIUM 500 MG TABLET E.C. PO SCH (09:44)
[2020-11-16] MEDS: APIXABAN 5 MG TABLET PO SCH ×2 (09:45→21:41)
[2020-11-16] MEDS: FERROUS SO4 325 MG TABLET (FP) PO SCH (09:45)
[2020-11-16] MEDS: COLLAGENASE CLOSTRIDIUM HIST. 30 GRAMS TUBE TP SCH (11:53)
[2020-11-16] MEDS: MELATONIN 5 MG TABLETS PO PRN (21:41)
[2020-11-16] MEDS: traMADol HCL 50 MG TABLET PO PRN (21:41)
[2020-11-17] MEDS: ACETAMINOPHEN 650 MG/20.3 ML ORAL SOLUTION (CUPS) PO PRN (02:04)
[2020-11-17] MEDS: traMADol HCL 50 MG TABLET PO PRN (05:22)
[2020-11-17] MEDS: methaDONE HCL 40 MG DISPERSABLE TABLET PO SCH (05:40)
[2020-11-17 06:40] VITALS: BP 98/53; PULSE 67; TEMP 98
[2020-11-17] MEDS ORDERED: methaDONE HCL 40 MG DISPERSABLE TABLET PO ONE (09:11)
[2020-11-17] MEDS: BICTEGRAV/EMTRICIT/TENOFOV (BIKTARVY) 50-200-25 MG TABLET PO SCH (09:30)
[2020-11-17] MEDS: DIVALPROEX SODIUM 500 MG TABLET E.C. PO SCH (09:30)
[2020-11-17] MEDS: FERROUS SO4 325 MG TABLET (FP) PO SCH (09:30)
[2020-11-17] MEDS: APIXABAN 5 MG TABLET PO SCH (09:31)
[2020-11-17] MEDS: COLLAGENASE CLOSTRIDIUM HIST. 30 GRAMS TUBE TP SCH (09:32)
== END 2020-11-17 12:57 | disposition home health service (06) | DRG 380 ==
LOC: JER 01:54 → INTOOBSV 06:25 → JERBED 06:25 → OBSVTOIN 07:36 → J6S 23:59 → JICU 11-13 01:55 → J8W 11-13 17:06
PROVIDERS: ADMIT Internal Medicine; ATTEND Nurse Practitioner Acute Care
PROC: HZ2ZZZZ Detoxification Services for Substance Abuse Treatment (ICD-10-PCS; principal; 2020-11-12)
DX: L97.319 Non-pressure chronic ulcer of right ankle with unspecified severity (principal); Z21 Asymptomatic human immunodeficiency virus [HIV] infection status; F11.20 Opioid dependence, uncomplicated; D50.9 Iron deficiency anemia, unspecified; E88.09 Other disorders of plasma-protein metabolism, not elsewhere classified; F14.20 Cocaine dependence, uncomplicated; A53.9 Syphilis, unspecified; F10.239 Alcohol dependence with withdrawal, unspecified; D63.8 Anemia in other chronic diseases classified elsewhere; D64.9 Anemia, unspecified; Z86.718 Personal history of other venous thrombosis and embolism; Z78.9 Other specified health status
CPT/HCPCS: 36415; 73610-TC-RT-FY; 73630-TC-RT-FY; 80053; 82728; 82747; 82784; 83540; 83550; 83735; 83883; 84100; 84155; 84165; 85014; 85025; 85045; 85651; 86038; 86140; 86359; 86360; 86431; 87040; 93005; 93010; 99285-25; C9803; G0378; J0131; U0003; U0005

== ENCOUNTER 2021-06-02 12:10 | Inpatient (IN) | payer OTHER ==
[2021-06-02] MEDS ORDERED: SODIUM CHLORIDE 2,449 ML IV ONE (13:27)
[2021-06-02] MEDS ORDERED: methaDONE HCL 10 MG TABLET PO ONE (13:59)
[2021-06-02] MEDS ORDERED: methaDONE HCL 10 MG TABLET ONE (14:13)
[2021-06-02 15:00] LABS: BASO % 0.8 % (0-2.0); EOS % 1.2 % (0-4.5); HEMATOCRIT 23.9 % (35.4-49); HEMOGLOBIN 7.6 GM/dL (11.7-16.9); LYMPH % 14.2 % (8-40); MCH 21.4 pg (25.7-33.7); MCHC 31.7 g/dl (32.0-35.9); MEAN CELL VOLUME 67.5 fl (80-96); MEAN PLT VOLUME 8.4 fl (7.5-11.1); MONO % 16.4 % (3.8-10.2); NEUT % 67.4 % (42.8-82.8); PLATELET COUNT 258 10^3/uL (134-434); RBC 3.53 M/mm3 (4.00-5.60); RDW 17.8 % (11.9-15.9); WHITE BLOOD COUNT 7.3 K/mm3 (4.0-10.0)
[2021-06-02] MEDS ORDERED: cloNIDine HCL 0.1 MG TABLET ONE (15:04)
[2021-06-02] MEDS: cloNIDine HCL 0.1 MG TABLET PO PRN ×2 (15:06→21:51)
[2021-06-02 15:10] LABS: INR 1.12 (0.83-1.09); PROTHROMBIN TIME (PATIENT) 12.9 SEC (9.7-13.0)
[2021-06-02 15:12] LABS: ACTIVATED PTT 21.7 SECONDS (25.2-36.5)
[2021-06-02 15:21] LABS: ALBUMIN 2.8 g/dl (3.4-5.0); CALCIUM 8.5 mg/dL (8.5-10.1)
[2021-06-02 15:25] LABS: CREATININE 0.8 mg/dL (0.55-1.3)
[2021-06-02 15:27] LABS: BILIRUBIN,TOTAL 0.2 mg/dL (0.2-1)
[2021-06-02 15:41] LABS: ANISOCYTOSIS 3+; MACROCYTOSIS 0
[2021-06-02] MEDS ORDERED: PIPERACILLIN/TAZOB 3.375 GM 3.375 GM in DEXTROSE 5%-WATER - 50 ML IVPB ONE (15:56)
[2021-06-02] MEDS ORDERED: VANCOMYCIN 1 GM in D5W (PRE-DOCKED) 1,000 MG/250 ML IVPB ONE (15:56)
[2021-06-02] MEDS ORDERED: PIPERACILLIN/TAZOB 3.375 GM 3.375 GM in DEXTROSE 5%-WATER - 50 ML IVPB SCH (17:45)
[2021-06-02] MEDS ORDERED: THIAMINE HCL 200 MG/2 ML VIAL IVPB ONE (17:46)
[2021-06-02] MEDS ORDERED: VANCOMYCIN/WATER 1,250 MG/250 ML BAG IVPB SCH ×3 (18:15→23:14)
[2021-06-02] MEDS ORDERED: PIPERACILLIN/TAZOB 3.375 GM 3.375 GM/50 ML BAG IVPB ONE (18:45)
[2021-06-02] MEDS ORDERED: THIAMINE HCL 200 MG/2 ML VIAL ONE (18:46)
[2021-06-02 19:15] LABS: ERYTHROCYTE SEDIMENTATION RATE 59 mm/hr (0-10)
[2021-06-02 19:26] LABS: PH,URINE 6.5 (5.0-8.0); URINE APPEARANCE CLEAR; URINE BILIRUBIN NEGATIVE (NEGATIVE); URINE COLOR YELLOW; URINE GLUCOSE (UA) NEGATIVE (NEGATIVE); URINE KETONE NEGATIVE (NEGATIVE); URINE LEUK ESTERASE NEGATIVE (NEGATIVE); URINE NITRITE NEGATIVE (NEGATIVE); URINE PROTEIN NEGATIVE (NEGATIVE); URINE UROBILINOGEN 0.2 mg/dL (0.2-1.0)
[2021-06-02 19:52] LABS: PHENCYCLIDINE,URINE NEGATIVE (NEGATIVE); URINE BENZODIAZEPINES NEGATIVE (NEGATIVE)
[2021-06-02 19:53] LABS: OPIATES, URI NEGATIVE (NEGATIVE)
[2021-06-02 19:56] LABS: COCAINE, UR POSITIVE (NEGATIVE); METHADONE, UR POSITIVE (NEGATIVE); URINE AMPHETAMINES NEGATIVE (NEGATIVE); URINE BARBITURATES NEGATIVE (NEGATIVE)
[2021-06-02] MEDS: BICTEGRAV/EMTRICIT/TENOFOV (BIKTARVY) 50-200-25 MG TABLET PO SCH (20:01)
[2021-06-02 20:19] LABS: RETICULOCYTES 0.12 % (0.5-1.5)
[2021-06-02] MEDS ORDERED: VANCOMYCIN/WATER 1,250 MG/250 ML BAG IVPB ONE (22:00)
[2021-06-02] MEDS ORDERED: ACETAMINOPHEN 1000 MG/100 ML BAG IVPB ONE (22:26)
[2021-06-02] MEDS: PIPERACILLIN/TAZOB 3.375 GM 3.375 GM in DEXTROSE 5%-WATER - 50 ML IVPB SCH (22:49)
[2021-06-02] MEDS: chlordiazePOXIDE HCL 25 MG CAPSULE PO SCH (23:50)
[2021-06-03 01:10] VITALS: BMI 25.5
[2021-06-03] MEDS ORDERED: DEXTROSE 5%-WATER - 50 ML IVPB ONE ×3 (03:01→16:41)
[2021-06-03] MEDS ORDERED: PIPERACILLIN/TAZOBACTAM 3.375 GM VIAL IVPB ONE ×3 (03:01→16:41)
[2021-06-03] MEDS: PIPERACILLIN/TAZOB 3.375 GM 3.375 GM in DEXTROSE 5%-WATER - 50 ML IVPB SCH ×3 (04:01→18:57)
[2021-06-03] MEDS: chlordiazePOXIDE HCL 25 MG CAPSULE PO SCH ×4 (05:53→23:18)
[2021-06-03] MEDS: VANCOMYCIN/WATER 1,250 MG/250 ML BAG IVPB SCH ×2 (05:54→14:12)
[2021-06-03] MEDS ORDERED: methaDONE HCL 10 MG TABLET ONE (09:14)
[2021-06-03] MEDS: THIAMINE HCL 100 MG TABLET (FP) PO SCH (09:23)
[2021-06-03] MEDS: chlordiazePOXIDE HCL 25 MG CAPSULE PO PRN ×3 (09:26→21:18)
[2021-06-03] MEDS: BICTEGRAV/EMTRICIT/TENOFOV (BIKTARVY) 50-200-25 MG TABLET PO SCH (11:27)
[2021-06-03] MEDS ORDERED: LACTATED RINGERS SOLUTION 1000 ML INFUS.BAG IV ONE (11:35)
[2021-06-03] MEDS: PANTOPRAZOLE SODIUM 40 MG VIAL IVPUSH SCH (14:08)
[2021-06-03] MEDS: cloNIDine HCL 0.1 MG TABLET PO PRN ×2 (14:11→21:17)
[2021-06-03] MEDS ORDERED: LORazepam 2 MG TABLET PO SCH (16:30)
[2021-06-03] MEDS ORDERED: morphine CARPU-JECT 4 MG/1 ML DISP.SYRIN IVPUSH PRN (17:31)
[2021-06-03] MEDS: GABAPENTIN 100 MG CAPSULE PO SCH ×2 (18:57→21:10)
[2021-06-03] MEDS ORDERED: ACETAMINOPHEN 1000 MG/100 ML BAG IVPB ONE (21:30)
[2021-06-03] MEDS ORDERED: MELATONIN 5 MG TABLETS PO ONE (21:30)
[2021-06-03] MEDS: FERROUS SO4 325 MG TABLET (FP) PO SCH (21:55)
[2021-06-04] MEDS ORDERED: oxyCODONE HCL 5 MG TABLET PO ONE (03:43)
[2021-06-04] MEDS: chlordiazePOXIDE HCL 25 MG CAPSULE PO SCH ×4 (04:19→22:15)
[2021-06-04] MEDS: cloNIDine HCL 0.1 MG TABLET PO PRN (04:20)
[2021-06-04] MEDS: THIAMINE HCL 100 MG TABLET (FP) PO SCH (09:12)
[2021-06-04] MEDS: FERROUS SO4 325 MG TABLET (FP) PO SCH ×2 (09:13→22:10)
[2021-06-04] MEDS: GABAPENTIN 100 MG CAPSULE PO SCH (09:13)
[2021-06-04] MEDS: BICTEGRAV/EMTRICIT/TENOFOV (BIKTARVY) 50-200-25 MG TABLET PO SCH (09:14)
[2021-06-04] MEDS: ENOXAPARIN NA (PORCINE) 40 MG/0.4 ML DISP.SYRIN SQ SCH (09:14)
[2021-06-04] MEDS ORDERED: methaDONE HCL 10 MG TABLET PO ONE (10:00)
[2021-06-04] MEDS ORDERED: diphenhydrAMINE HCL 25 MG CAPSULE (FP) PO ONE (10:30)
[2021-06-04] MEDS: PANTOPRAZOLE SODIUM 40 MG VIAL IVPUSH SCH (11:36)
[2021-06-04] MEDS ORDERED: oxyCODONE HCL 5 MG TABLET PO PRN (11:45)
[2021-06-04 12:29] LABS: BASO % 0.2 % (0-2.0); EOS % 0.5 % (0-4.5); HEMATOCRIT 26.6 % (35.4-49); HEMOGLOBIN 8.4 GM/dL (11.7-16.9); LYMPH % 18.8 % (8-40); MCH 21.5 pg (25.7-33.7); MCHC 31.7 g/dl (32.0-35.9); MEAN PLT VOLUME 8.8 fl (7.5-11.1); MONO % 9.1 % (3.8-10.2); NEUT % 71.4 % (42.8-82.8); PLATELET COUNT 307 10^3/uL (134-434); RBC 3.92 M/mm3 (4.00-5.60); RDW 17.3 % (11.9-15.9)
[2021-06-04] MEDS ORDERED: KETOROLAC TROMETHAMINE 30 MG/1 ML VIAL IM ONE (13:45)
[2021-06-04] MEDS: PANTOPRAZOLE 40 MG TABLET PO SCH (13:54)
[2021-06-04] MEDS: GABAPENTIN 300 MG CAPSULE PO SCH ×2 (13:54→22:16)
[2021-06-04] MEDS: ACETAMINOPHEN 325 MG TABLET (FP) PO PRN (14:39)
[2021-06-04] MEDS ORDERED: KETOROLAC TROMETHAMINE 15 MG/ML VIAL IVPUSH ONE (22:29)
[2021-06-04] MEDS ORDERED: MELATONIN 5 MG TABLETS PO ONE (22:30)
[2021-06-05] MEDS ORDERED: chlordiazePOXIDE HCL 10 MG CAPSULE PO PRN
[2021-06-05] MEDS: chlordiazePOXIDE HCL 10 MG CAPSULE PO SCH ×3 (06:16→16:48)
[2021-06-05] MEDS: ACETAMINOPHEN 325 MG TABLET (FP) PO PRN ×2 (06:16→13:16)
[2021-06-05] MEDS: GABAPENTIN 300 MG CAPSULE PO SCH ×2 (06:16→13:17)
[2021-06-05 10:31] LABS: CALCIUM 8.3 mg/dL (8.5-10.1)
[2021-06-05 10:32] LABS: ALBUMIN 2.6 g/dl (3.4-5.0); BLOOD UREA NITROGEN 34.2 mg/dL (7-18)
[2021-06-05 10:35] LABS: CREATININE 1.2 mg/dL (0.55-1.3)
[2021-06-05 10:36] LABS: BILIRUBIN,TOTAL 0.3 mg/dL (0.2-1)
[2021-06-05 10:37] LABS: TOT PROT 7.8 g/dl (6.4-8.2)
[2021-06-05] MEDS: ENOXAPARIN NA (PORCINE) 40 MG/0.4 ML DISP.SYRIN SQ SCH (10:51)
[2021-06-05] MEDS: PANTOPRAZOLE 40 MG TABLET PO SCH (10:51)
[2021-06-05] MEDS: FERROUS SO4 325 MG TABLET (FP) PO SCH (10:51)
[2021-06-05] MEDS: THIAMINE HCL 100 MG TABLET (FP) PO SCH (10:51)
[2021-06-05] MEDS: BICTEGRAV/EMTRICIT/TENOFOV (BIKTARVY) 50-200-25 MG TABLET PO SCH (10:52)
[2021-06-05] MEDS ORDERED: methaDONE HCL 10 MG TABLET ONE (10:54)
[2021-06-05 12:59] VITALS: BP 124/73; PULSE 91; TEMP 98.9
[2021-06-05] MEDS ORDERED: PIPERACILLIN/TAZOB 3.375 GM 3.375 GM in DEXTROSE 5%-WATER - 50 ML IVPB SCH ×2 (14:45→16:00)
[2021-06-05] MEDS ORDERED: PIPERACILLIN/TAZOBACTAM 3.375 GM VIAL IVPB ONE (16:41)
[2021-06-05] MEDS ORDERED: DEXTROSE 5%-WATER - 50 ML IVPB ONE (16:42)
[2021-06-05] MEDS ORDERED: KETOROLAC TROMETHAMINE 30 MG/1 ML VIAL IM ONE (18:37)
[2021-06-06] MEDS ORDERED: chlordiazePOXIDE HCL 10 MG CAPSULE PO SCH (05:00)
[2021-06-06] MEDS ORDERED: methaDONE HCL 10 MG TABLET PO ONE (10:00)
[2021-06-07] MEDS ORDERED: chlordiazePOXIDE HCL 10 MG CAPSULE PO ONE (05:00)
== END 2021-06-05 23:05 | disposition left against medical advice (07) | DRG 383 ==
LOC: JER 12:10 → JERBED 16:50 → J6S 21:36
PROVIDERS: ADMIT Internal Medicine
DX: L03.115 Cellulitis of right lower limb (principal); L97.319 Non-pressure chronic ulcer of right ankle with unspecified severity; I73.9 Peripheral vascular disease, unspecified; D64.9 Anemia, unspecified; F10.10 Alcohol abuse, uncomplicated; F11.23 Opioid dependence with withdrawal; F12.90 Cannabis use, unspecified, uncomplicated; F60.3 Borderline personality disorder; I83.013 Varicose veins of right lower extremity with ulcer of ankle; Z21 Asymptomatic human immunodeficiency virus [HIV] infection status
CPT/HCPCS: 36415; 71045-TC-FY; 80053; 80307; 81003; 82553; 83036; 83605; 84484; 85025; 85045; 85610; 85651; 85730; 86359; 86360; 86850; 86900; 86901; 87040; 87086; 93005; 93010; 93971-TC; 99285-25; C9803-CS; J0735; U0003; U0005

== ENCOUNTER 2022-01-21 12:20 | Inpatient (IN) | payer OTHER ==
[2022-01-21 13:43] VITALS: BMI 27.6
[2022-01-21] MEDS ORDERED: guaiFENesin 200 MG/10 ML 10 ML UNIT-DOSE CUPS PO PRN (14:36)
[2022-01-21] MEDS ORDERED: DICYCLOMINE HCL 10 MG CAPSULE PO PRN (14:36)
[2022-01-21] MEDS ORDERED: MAGNESIUM HYDROX 2400MG/30ML ORAL SUSPENSION 30 ML CUP PO PRN (14:36)
[2022-01-21] MEDS ORDERED: ONDANSETRON *ODT* 4 MG TABLET SL PRN (14:36)
[2022-01-21] MEDS ORDERED: NALOXONE HCL (KLOXXADO) 8 MG SPRAY NS PRN (14:36)
[2022-01-21] MEDS ORDERED: ACETAMINOPHEN 325 MG TABLET (FP) PO PRN (14:36)
[2022-01-21] MEDS ORDERED: NALOXONE HCL 0.4 MG/ML VIAL IM PRN (14:36)
[2022-01-21] MEDS ORDERED: P-EPHED 60MG/TRIPROLIDI 2.5MG TABLET PO PRN (14:36)
[2022-01-21] MEDS ORDERED: LOPERAMIDE HCL 2 MG CAPSULE PO PRN (14:36)
[2022-01-21] MEDS ORDERED: BENZOCAINE/MENTHOL (CHLORASEPTIC ) LOZENGE MM PRN (14:36)
[2022-01-21] MEDS ORDERED: POLYETHYLENE GLYCOL (HEALTHYLAX) 3350 17 GM PACKET PO PRN (14:36)
[2022-01-21] MEDS ORDERED: NICOTINE POLACRILEX 2 MG GUM BUC PRN (14:36)
[2022-01-21] MEDS ORDERED: MAG HYDROX/AL HYDROX/SIMETH 30 ML UNIT-DOSE CUP PO PRN (14:36)
[2022-01-21] MEDS ORDERED: methaDONE HCL 10 MG TABLET (FOR DETOX USE ONLY) ONE (15:13)
[2022-01-21] MEDS ORDERED: IBUPROFEN 600 MG TABLET (FP) PO ONE (15:14)
[2022-01-21] MEDS: methaDONE HCL 10 MG TABLET (FOR DETOX USE ONLY) PO ONE (17:08)
[2022-01-21] MEDS: ACETAMINOPHEN 325 MG TABLET (FP) PO PRN (17:16)
[2022-01-21] MEDS: SULFAMETHOXAZOLE/TRIMETHOPRIM 800MG/160MG D.S. TABLET PO SCH (17:18)
[2022-01-21] MEDS ORDERED: NICOTINE 10 MG CARTRIDGE (INHALER) IH PRN (18:45)
[2022-01-21] MEDS: IBUPROFEN 600 MG TABLET (FP) PO PRN (21:49)
[2022-01-21] MEDS: THIAMINE HCL 100 MG TABLET (FP) PO SCH (21:50)
[2022-01-21] MEDS: DOXYCYCLINE HYCLATE 100 MG CAPSULE PO SCH (21:50)
[2022-01-21] MEDS: MELATONIN 5 MG TABLETS PO SCH (21:50)
[2022-01-22] MEDS: chlordiazePOXIDE HCL 25 MG CAPSULE PO PRN ×2 (09:18→21:41)
[2022-01-22] MEDS: DOXYCYCLINE HYCLATE 100 MG CAPSULE PO SCH (09:19)
[2022-01-22] MEDS: cloNIDine HCL 0.1 MG TABLET PO PRN (09:19)
[2022-01-22] MEDS: METHOCARBAMOL 500 MG TABLET PO PRN ×2 (09:19→16:30)
[2022-01-22] MEDS: SULFAMETHOXAZOLE/TRIMETHOPRIM 800MG/160MG D.S. TABLET PO SCH (09:19)
[2022-01-22] MEDS: IBUPROFEN 600 MG TABLET (FP) PO PRN (09:19)
[2022-01-22] MEDS: methaDONE HCL 10 MG TABLET (FOR DETOX USE ONLY) PO ONE (09:20)
[2022-01-22] MEDS: PRENATAL VITAMINS W/ FOLIC ACID TABLET (FP) PO SCH (09:20)
[2022-01-22] MEDS ORDERED: IBUPROFEN 400 MG TABLET (FP) PO PRN (10:32)
[2022-01-22 10:48] LABS: HEMATOCRIT 25.3 % (35.4-49); HEMOGLOBIN 7.9 GM/dL (11.7-16.9); MCHC 31.1 g/dl (32.0-35.9); MEAN CELL VOLUME 64.2 fl (80-96); MEAN PLT VOLUME 9.2 fl (7.5-11.1); PLATELET COUNT 201 10^3/uL (134-434); RBC 3.94 M/mm3 (4.00-5.60); RDW 23.6 % (11.9-15.9); WHITE BLOOD COUNT 6.5 K/mm3 (4.0-10.0)
[2022-01-22 11:00] LABS: CREATININE 0.8 mg/dL (0.55-1.3)
[2022-01-22 11:01] LABS: ALBUMIN 2.5 g/dl (3.4-5.0); BLOOD UREA NITROGEN 14.7 mg/dL (7-18)
[2022-01-22 11:02] LABS: BILIRUBIN,TOTAL 0.2 mg/dL (0.2-1); CALCIUM 8.7 mg/dL (8.5-10.1); TOT PROT 7.4 g/dl (6.4-8.2)
[2022-01-22] MEDS: IBUPROFEN 400 MG TABLET (FP) PO PRN (16:30)
[2022-01-22] MEDS: ACETAMINOPHEN 325 MG TABLET (FP) PO PRN (18:47)
[2022-01-22] MEDS: hydrOXYzine PAMOATE 25 MG CAPSULE (FP) PO PRN (21:41)
[2022-01-22] MEDS: THIAMINE HCL 100 MG TABLET (FP) PO SCH (21:41)
[2022-01-22] MEDS: MELATONIN 5 MG TABLETS PO SCH (21:42)
[2022-01-23] MEDS ORDERED: methaDONE HCL 10 MG TABLET (FOR DETOX USE ONLY) PO ONE (10:00)
[2022-01-23] MEDS: METHOCARBAMOL 500 MG TABLET PO PRN ×2 (10:42→18:22)
[2022-01-23] MEDS: SULFAMETHOXAZOLE/TRIMETHOPRIM 800MG/160MG D.S. TABLET PO SCH (10:43)
[2022-01-23] MEDS: PRENATAL VITAMINS W/ FOLIC ACID TABLET (FP) PO SCH (10:44)
[2022-01-23] MEDS: cloNIDine HCL 0.1 MG TABLET PO PRN (10:45)
[2022-01-23] MEDS: hydrOXYzine PAMOATE 25 MG CAPSULE (FP) PO PRN ×2 (10:45→18:22)
[2022-01-23] MEDS: chlordiazePOXIDE HCL 25 MG CAPSULE PO PRN ×2 (12:33→18:22)
[2022-01-23] MEDS: THIAMINE HCL 100 MG TABLET (FP) PO SCH (23:12)
[2022-01-23] MEDS: MELATONIN 5 MG TABLETS PO SCH (23:12)
[2022-01-24] MEDS: METHOCARBAMOL 500 MG TABLET PO PRN ×2 (01:47→16:02)
[2022-01-24] MEDS: IBUPROFEN 400 MG TABLET (FP) PO PRN ×3 (01:47→19:03)
[2022-01-24] MEDS: chlordiazePOXIDE HCL 25 MG CAPSULE PO PRN ×2 (07:24→17:33)
[2022-01-24] MEDS: hydrOXYzine PAMOATE 25 MG CAPSULE (FP) PO PRN ×2 (07:24→16:02)
[2022-01-24] MEDS ORDERED: methaDONE HCL 10 MG TABLET (FOR DETOX USE ONLY) PO ONE (10:00)
[2022-01-24] MEDS: SULFAMETHOXAZOLE/TRIMETHOPRIM 800MG/160MG D.S. TABLET PO SCH (10:06)
[2022-01-24] MEDS: PRENATAL VITAMINS W/ FOLIC ACID TABLET (FP) PO SCH (10:06)
[2022-01-24] MEDS ORDERED: cloNIDine HCL 0.1 MG TABLET PO PRN (15:56)
[2022-01-24] MEDS ORDERED: FERROUS GLUCONATE 324 MG TAB (FP) PO SCH ×2 (17:30→20:00)
[2022-01-24 20:55] VITALS: BP 121/68; PULSE 103; RESP 18; TEMP 97.1
[2022-01-25] MEDS ORDERED: methaDONE HCL 10 MG TABLET (FOR DETOX USE ONLY) PO ONE (10:00)
[2022-01-26] MEDS ORDERED: methaDONE HCL 10 MG TABLET (FOR DETOX USE ONLY) PO ONE (10:00)
== END 2022-01-24 21:12 | disposition left against medical advice (07) | DRG 770 ==
LOC: YASAS 12:20 → Y3N 15:09
PROVIDERS: ADMIT Allergy & Immunology; ATTEND Family Medicine Addiction Medicine
PROC: HZ2ZZZZ Detoxification Services for Substance Abuse Treatment (ICD-10-PCS; principal; 2022-01-21)
DX: F11.23 Opioid dependence with withdrawal (principal); F14.20 Cocaine dependence, uncomplicated; F10.10 Alcohol abuse, uncomplicated; F17.210 Nicotine dependence, cigarettes, uncomplicated; E88.09 Other disorders of plasma-protein metabolism, not elsewhere classified; F64.0 Transsexualism; Z21 Asymptomatic human immunodeficiency virus [HIV] infection status; D50.9 Iron deficiency anemia, unspecified; L89.513 Pressure ulcer of right ankle, stage 3; Z86.19 Personal history of other infectious and parasitic diseases; Z86.718 Personal history of other venous thrombosis and embolism
CPT/HCPCS: 36415; 80053; 85027; 86593; 86780; C9803-CS; U0003; U0005

== ENCOUNTER 2022-07-15 11:42 | Inpatient (IN) | payer OTHER ==
[2022-07-15 11:53] VITALS: BMI 23.7
[2022-07-15] MEDS ORDERED: ACETAMINOPHEN 1000 MG/100 ML BAG IVPB ONE (12:24)
[2022-07-15] MEDS ORDERED: PIPERACILLIN/TAZOB 4.5 GM 4.5 GM in DEXTROSE 5%-WATER 100 ML IVPB ONE (12:35)
[2022-07-15] MEDS ORDERED: VANCOMYCIN 1 GM in D5W (PRE-DOCKED) 1,000 MG/250 ML (RESTRICTED TO ID ONLY IVPB ONE (12:39)
[2022-07-15] MEDS ORDERED: cloNIDine HCL 0.1 MG TABLET PO ONE (12:40)
[2022-07-15] MEDS ORDERED: cloNIDine HCL 0.1 MG TABLET ONE (14:35)
[2022-07-15] MEDS ORDERED: PIPERACILLIN/TAZOB 4.5 GM 4.5 GM/100 ML BAG IVPB ONE (15:01)
[2022-07-15] MEDS ORDERED: ACETAMINOPHEN INJECTION 100 ML IVPB ONE (15:01)
[2022-07-15 15:21] LABS: BASO % 0.5 % (0-2.0); EOS % 1.6 % (0-4.5); HEMATOCRIT 23.1 % (35.4-49); HEMOGLOBIN 7.3 GM/dL (11.7-16.9); LYMPH % 24.8 % (8-40); MCHC 31.6 g/dl (32.0-35.9); MEAN CELL VOLUME 62.6 fl (80-96); MEAN PLT VOLUME 8.8 fl (7.5-11.1); MONO % 8.3 % (3.8-10.2); NEUT % 64.8 % (42.8-82.8); PLATELET COUNT 329 10^3/uL (134-434); RBC 3.68 M/mm3 (4.00-5.60); RDW 18.4 % (11.9-15.9)
[2022-07-15 15:22] LABS: MCH 19.8 pg (25.7-33.7)
[2022-07-15 15:36] LABS: INR 1.21 (0.83-1.09)
[2022-07-15 15:44] LABS: CHLORIDE 106 mmol/L (98-107); SODIUM 131 mmol/L (136-145)
[2022-07-15 15:46] LABS: ALBUMIN 2.5 g/dl (3.4-5.0); CALCIUM 8.7 mg/dL (8.5-10.1); CO2 25 mmol/L (21-32); GLUCOSE,RANDOM 86 mg/dL (74-106)
[2022-07-15 15:47] LABS: BLOOD UREA NITROGEN 9.8 mg/dL (7-18)
[2022-07-15 15:49] LABS: CREATININE 1.1 mg/dL (0.55-1.3)
[2022-07-15 15:50] LABS: SGOT/AST 78 U/L (15-37)
[2022-07-15 15:51] LABS: BILIRUBIN,TOTAL 0.6 mg/dL (0.2-1); TOT PROT 11.1 g/dl (6.4-8.2)
[2022-07-15 15:52] LABS: ALK PHOS 85 U/L (45-117)
[2022-07-15 15:59] LABS: ERYTHROCYTE SEDIMENTATION RATE 111 mm/hr (0-10)
[2022-07-15 16:26] LABS: ANION GAP -1 MMOL/L (8-16); POTASSIUM 8.4 mmol/L (3.5-5.1); SGPT/ALT 18 U/L (13-61)
[2022-07-15] MEDS ORDERED: VANCOMYCIN/WATER FOR INJ (PEG) 1,000 MG/200 ML BAG IVPB ONE (16:41)
[2022-07-15] MEDS ORDERED: cloNIDine HCL 0.1 MG TABLET PO PRN (17:14)
[2022-07-15] MEDS ORDERED: methaDONE HCL 10 MG TABLET (FOR DETOX USE ONLY) PO ONE (17:14)
[2022-07-15] MEDS ORDERED: ACETAMINOPHEN 325 MG TABLET (FP) PO PRN (17:18)
[2022-07-15] MEDS ORDERED: methaDONE HCL 10 MG TABLET ONE (17:24)
[2022-07-15] MEDS: KETOROLAC TROMETHAMINE 15 MG/ML VIAL IM ONE ×2 (21:22→22:04)
[2022-07-15] MEDS ORDERED: KETOROLAC TROMETHAMINE 15 MG/ML VIAL IVPUSH ONE (21:46)
[2022-07-15 21:58] LABS: POTASSIUM 3.8 mmol/L (3.5-5.1)
[2022-07-15 22:00] LABS: CALCIUM 8.2 mg/dL (8.5-10.1)
[2022-07-15 22:01] LABS: ALBUMIN 2.3 g/dl (3.4-5.0); BLOOD UREA NITROGEN 9.5 mg/dL (7-18)
[2022-07-15 22:05] LABS: BILIRUBIN,TOTAL 0.2 mg/dL (0.2-1)
[2022-07-15 22:08] LABS: TOT PROT 8.9 g/dl (6.4-8.2)
[2022-07-16] MEDS ORDERED: KETOROLAC TROMETHAMINE 15 MG/ML VIAL IVPUSH ONE (03:13)
[2022-07-16] MEDS ORDERED: CEFEPIME HCL/D5W 2 GM/50 ML BAG IVPB SCH (06:00)
[2022-07-16] MEDS: CEFEPIME 2 GM in DEXTROSE 5%-WATER 100 ML IVPB SCH ×2 (06:43→18:09)
[2022-07-16 07:14] VITALS: RESP 18
[2022-07-16] MEDS ORDERED: VANCOMYCIN 1,000 MG in DEXTROSE 5%-WATER - 250 ML IVPB SCH (10:00)
[2022-07-16] MEDS: ENOXAPARIN NA (PORCINE) 40 MG/0.4 ML DISP.SYRIN SQ SCH (10:27)
[2022-07-16] MEDS: VANCOMYCIN/WATER FOR INJ (PEG) 1,000 MG/200 ML BAG IVPB SCH ×2 (10:27→21:41)
[2022-07-16] MEDS ORDERED: VANCOMYCIN 1 GM in D5W (PRE-DOCKED) 1,000 MG/250 ML (RESTRICTED TO ID ONLY IVPB ONE (10:48)
[2022-07-16 12:00] LABS: BASO % 0.8 % (0-2.0); EOS % 0.9 % (0-4.5); HEMATOCRIT 23.8 % (35.4-49); HEMOGLOBIN 7.4 GM/dL (11.7-16.9); LYMPH % 25.2 % (8-40); MCH 19.2 pg (25.7-33.7); MCHC 30.8 g/dl (32.0-35.9); MEAN CELL VOLUME 62.2 fl (80-96); MEAN PLT VOLUME 8.7 fl (7.5-11.1); MONO % 12.5 % (3.8-10.2); NEUT % 60.6 % (42.8-82.8); PLATELET COUNT 278 10^3/uL (134-434); RBC 3.83 M/mm3 (4.00-5.60); RDW 18.4 % (11.9-15.9); WHITE BLOOD COUNT 3.8 K/mm3 (4.0-10.0)
[2022-07-16 12:25] LABS: POTASSIUM 4.3 mmol/L (3.5-5.1)
[2022-07-16 12:27] LABS: CALCIUM 8.7 mg/dL (8.5-10.1)
[2022-07-16 12:28] LABS: ALBUMIN 2.5 g/dl (3.4-5.0); BLOOD UREA NITROGEN 11.1 mg/dL (7-18); MAGNESIUM 2.4 mg/dL (1.8-2.4)
[2022-07-16 12:32] LABS: BILIRUBIN,TOTAL 0.3 mg/dL (0.2-1); TOT PROT 9.8 g/dl (6.4-8.2)
[2022-07-16] MEDS: KETOROLAC TROMETHAMINE 15 MG/ML VIAL IVPUSH PRN ×2 (15:53→22:06)
[2022-07-16] MEDS ORDERED: traMADol HCL 50 MG TABLET PO ONE (20:31)
[2022-07-16] MEDS: MELATONIN 5 MG TABLETS PO PRN (21:41)
[2022-07-17] MEDS: KETOROLAC TROMETHAMINE 15 MG/ML VIAL IVPUSH PRN ×2 (04:56→11:56)
[2022-07-17] MEDS ORDERED: methaDONE HCL 10 MG TABLET PO ONE (06:00)
[2022-07-17] MEDS: CEFEPIME 2 GM in DEXTROSE 5%-WATER 100 ML IVPB SCH ×2 (06:17→17:09)
[2022-07-17] MEDS: FERROUS SO4 325 MG TABLET (FP) PO SCH (09:29)
[2022-07-17] MEDS: ENOXAPARIN NA (PORCINE) 40 MG/0.4 ML DISP.SYRIN SQ SCH (09:32)
[2022-07-17] MEDS ORDERED: methaDONE HCL 10 MG TABLET (FOR DETOX USE ONLY) PO ONE (10:00)
[2022-07-17] MEDS: ALPRAZolam 1 MG TABLET PO PRN (17:07)
[2022-07-17] MEDS: MELATONIN 5 MG TABLETS PO PRN (21:57)
[2022-07-18] MEDS ORDERED: clonazePAM 0.5 MG TABLET PO ONE (00:52)
[2022-07-18] MEDS: KETOROLAC TROMETHAMINE 15 MG/ML VIAL IVPUSH PRN ×3 (01:18→22:05)
[2022-07-18] MEDS: CEFEPIME 2 GM in DEXTROSE 5%-WATER 100 ML IVPB SCH ×2 (06:16→17:25)
[2022-07-18] MEDS: FERROUS SO4 325 MG TABLET (FP) PO SCH (11:45)
[2022-07-18] MEDS: ENOXAPARIN NA (PORCINE) 40 MG/0.4 ML DISP.SYRIN SQ SCH (11:45)
[2022-07-18] MEDS: clonazePAM 0.5 MG TABLET PO SCH ×3 (12:30→21:35)
[2022-07-18] MEDS: ALPRAZolam 1 MG TABLET PO PRN (16:56)
[2022-07-18] MEDS: MELATONIN 5 MG TABLETS PO PRN (21:35)
[2022-07-18] MEDS ORDERED: ONDANSETRON 4 MG/2 ML VIAL IVPUSH PRN (21:39)
[2022-07-18] MEDS ORDERED: MELATONIN 5 MG TABLETS PO ONE (23:03)
[2022-07-19] MEDS: KETOROLAC TROMETHAMINE 15 MG/ML VIAL IVPUSH PRN (05:04)
[2022-07-19] MEDS: CEFEPIME 2 GM in DEXTROSE 5%-WATER 100 ML IVPB SCH (05:05)
[2022-07-19] MEDS ORDERED: methaDONE HCL 10 MG TABLET PO ONE (06:00)
[2022-07-19 08:42] VITALS: BP 132/82; PULSE 65; TEMP 98.2
[2022-07-19] MEDS ORDERED: methaDONE HCL 10 MG TABLET (FOR DETOX USE ONLY) PO ONE (10:00)
[2022-07-19] MEDS: ENOXAPARIN NA (PORCINE) 40 MG/0.4 ML DISP.SYRIN SQ SCH (10:03)
[2022-07-19] MEDS: clonazePAM 0.5 MG TABLET PO SCH (10:04)
[2022-07-19] MEDS: FERROUS SO4 325 MG TABLET (FP) PO SCH (10:05)
== END 2022-07-19 11:35 | disposition left against medical advice (07) | DRG 894 ==
LOC: JER 11:42 → JERBED 16:43 → J7W 19:49
PROVIDERS: ADMIT Internal Medicine
DX: L03.115 Cellulitis of right lower limb (principal); B20 Human immunodeficiency virus [HIV] disease; G62.9 Polyneuropathy, unspecified; F11.23 Opioid dependence with withdrawal; D64.9 Anemia, unspecified; F19.10 Other psychoactive substance abuse, uncomplicated; F31.9 Bipolar disorder, unspecified; Z91.148 Patient's other noncompliance with medication regimen for other reason
CPT/HCPCS: 36415; 73610-TC-RT-FY; 73630-TC-RT-FY; 80053; 82272; 82728; 83010; 83540; 83550; 83615; 83735; 84100; 84155; 84165; 84466; 85025; 85045; 85610; 85651; 85730; 86140; 86359; 86360; 86850; 86900; 86901; 87040; 87070; 87076; 87081; 87186; 87205; 93005; 93010; 93970-TC; 99285-25; C9803-CS; U0003; U0005